=== PATIENT | female | born 1935 | race Caucasian/White ===

== ENCOUNTER 2019-09-14 15:25 | Emergency (ER) | payer MEDICARE, BC, SELFPAY ==
[2019-09-14 15:50] VITALS: BP 149/69; PULSE 70; RESP 16; TEMP 36.9; O2SAT 98; BMI 24.0
--- NOTE | 2019-09-14 15:53 | DI.RAD.S_ITS ---
PROCEDURE: XR KNEE LT 3V INDICATIONS: unable to bear weight. TECHNIQUE: 3 views of the knee were acquired. COMPARISON: None. FINDINGS: Bones: The bone mineralization is decreased, which does result in difficulty evaluating for subtle fractures. Additionally, clothing artifact does also result in difficulty evaluating for subtle abnormalities. No displaced fracture or dislocation is evident. No suspicious osseous lesions are evident. There are mild degenerative changes of the knee. There is patella Tyler. Soft tissues: There is a joint effusion. No suspicious soft tissue calcifications. IMPRESSION: 1. Mild degenerative changes of the knee. 2. No displaced fractures. 3. Patella Nicole. 4. Joint effusion Dictated by: Jorge Hsu M.D. on 09/14/2019 at 15:17 Approved by: Jorge Hsu M.D. on 09/14/2019 at 15:18
--- NOTE | 2019-09-14 18:05 | ED_ITS ---
HPI - Extremity Problem General Chief complaint: Extremity Problem,Nontraumatic Stated complaint: Left Knee Pain Time Seen by Provider: 09/14/19 18:05 Source: patient Mode of arrival: Wheelchair Limitations: no limitations History of Present Illness HPI Narrative: 84F non smoker with history of RA presents with her and the chief complaint of left knee pain in the absence of any known or obvious injury. She is on a trip and travelling by and has been more active than normal. She has increased pain with ambulation and improvement with rest. She denies numbness, tingling, or weakness. She denies fever or chills. She denies redness, swelling or other. She has no history of the same. MD Complaint: extremity pain Onset (ago): day(s) Pain Consistency: constant Location: left Quality: burning and aching Radiation: none Relieving factors: rest Exacerbating factors: weight bearing and walking Associated symptoms: denies other symptoms Related Data Allergies Allergy/AdvReac Type Severity Reaction Status Date / Time erythromycin base Allergy Verified 09/14/19 15:50 [From E-Mycin] Sulfa (Sulfonamide Allergy Verified 09/14/19 15:50 Antibiotics) theophylline Allergy Verified 09/14/19 15:50 Review of Systems Constitutional Constitutional: Denies chills, Denies fatigue, Denies fever(s), Denies frequent falls, Denies lethargy and Denies weakness Eyes Eyes: Denies change in vision, Denies eye discharge, Denies irritation and Denies loss of vision ENT Ears, Nose, Mouth, and Throat: Denies change in voice, Denies dizziness, Denies neck pain, Denies sore throat and Denies throat swelling Cardiovascular Cardiovascular: Denies chest pain, Denies irregular heart rhythm, Denies lightheadedness, Denies palpitations, Denies dyspnea, Denies dyspnea on exertion and Denies orthopnea Respiratory Respiratory: Denies cough, Denies dyspnea, Denies dyspnea on exertion and Denies wheezing Gastrointestinal Gastrointestinal: Denies abdominal pain, Denies change in bowel habits, Denies diarrhea, Denies nausea and Denies vomiting Musculoskeletal Musculoskeletal: Reports arthralgias, Denies neck pain and Denies numbness Integumentary/Breasts Skin/Breast: Denies pruritus, Denies erythema, Denies rash and Denies wounds Neurologic Neurologic: Denies behavioral changes, Denies confusion, Denies dizziness, Denies frequent falls, Denies loss of vision, Denies numbness and Denies weakness Psychiatric Psychiatric: Denies anxiety, Denies behavioral changes, Denies confusion, Denies depression, Denies homicidal ideation and Denies suicidal ideation Endocrine Endocrine: Denies fatigue, Denies flushing and Denies palpitations Hematologic/Lymphatic Hematologic/Lymphatic: Denies easy bruising Allergic/Immunologic Allergic/Immunologic: Denies urticaria, Denies throat swelling and Denies wheezing Patient History Social History Smoking Status: Never smoker Smoking Status: Never smoker alcohol intake frequency: 0-2 drinks per day Substance Use Type: does not use Exam Narrative Exam Narrative: GENERAL: [84] year old patient appears stated age. Well- nourished, well-developed patient, in mild distress. HEAD: Atraumatic. Normocephalic. EYES: Pupils equal round and reactive. Extraocular motions intact. No scleral icterus. No injection or drainage. ENT: Nose without bleeding, purulent drainage. Throat without erythema, tonsillar hypertrophy or exudate. Airway patent. NECK: Trachea midline. Non tender CARDIOVASCULAR: Regular rate and rhythm without murmurs, gallops, or rubs. RESPIRATORY: Clear to auscultation. Breath sounds equal bilaterally. No wheezes, rales, or rhonchi. GASTROINTESTINAL: Abdomen soft, non-tender, nondistended. EXTREMITIES: No obvious deformity, no erythema or warmth. Pinpoint tender to lateral jointline. No ligamentous instability. BACK: Nontender without deformity or crepitance. No flank tenderness. NEURO: AOx3. SKIN: No rash or erythema of visible areas Initial Vital Signs Initial Vital Signs: Vital Signs Temperature 98.5 F 09/14/19 15:50 Pulse Rate 70 09/14/19 15:50 Respiratory Rate 16 09/14/19 15:50 Blood Pressure 149/69 H 09/14/19 15:50 Pulse Oximetry 98 09/14/19 15:50 Course Orders Ordered: ED Orders 09/14/19 15:53 XR knee LT 3V Stat Vital Signs Vital signs: Vital Signs - 8 hr 09/14/19 15:50 09/14/19 18:49 Temperature 98.5 F Pulse Rate 70 70 Respiratory Rate 16 Blood Pressure 149/69 H 180/89 H Pulse Oximetry 98 98 MDM - Extremity (Nontraumatic) Imaging Data Extremity x-ray #1: Radiologist's Impression: [address] [address] XRay Report Signed Patient: Tuyet Barger RMR#: [id number] : 6Acct:[id number] Age/Sex: 84 / FDate of Service: 09/14/19 Loc: ED Accession Number: [id number] Procedure: XR knee LT 3V Ordering Provider: Estella Salcedo D.O. PROCEDURE: XR KNEE LT 3V INDICATIONS: unable to bear weight. TECHNIQUE: 3 views of the knee were acquired. COMPARISON: None. FINDINGS: Bones: The bone mineralization is decreased, which does result in difficulty evaluating for subtle fractures. Additionally, clothing artifact does also result in difficulty evaluating for subtle abnormalities. No displaced fracture or dislocation is evident. No suspicious osseous lesions are evident. There are mild degenerative changes of the knee. There is patella Wood[place]. Soft tissues: There is a joint effusion. No suspicious soft tissue calcifications. IMPRESSION: 1. Mild degenerative changes of the knee. 2. No displaced fractures. 3. Patella [place]. 4. Joint effusion Dictated by: Jorge Hsu M.D. on 09/14/2019 at 15:17 Approved by: Jorge Hsu M.D. on 09/14/2019 at 15:18 Discharge Plan Departure Patient Disposition: Home Clinical Impression: Knee joint pain Qualifiers: Laterality: left Qualified Code(s): M25.562 - Pain in left knee Instructions: DI for Knee Pain Activity Restrictions/Additional Instructions: *You have been diagnosed with [acute left knee pain, reassuring knee x-ray] *What to do: *Take medications as directed *Follow up with your primary care provider in 2-3 days, call for an appointment. Let them know you were seen in the Emergency Department and that we ask that you be seen in follow up *Return to ER if you should have any new, worsening or concerning symptoms
[2019-09-14 18:49] VITALS: BP 180/89; PULSE 70; O2SAT 98
== END 2019-09-14 19:15 | disposition home or self-care (01) ==
PROVIDERS: Emergency Provider Emergency Medicine
DX: M25.562 Pain in left knee (principal)
CPT/HCPCS: 73562; 99281; 99283